=== PATIENT | male | born 1950 | race Caucasian/White ===

== ENCOUNTER 2017-05-29 06:26 | Emergency (ER) | payer MEDICARE, OTHER ==
[2017-05-29 07:10] LABS: Basophils # (A) 0.1 k/uL (0-0.2); Basophils % (A) 1 %; CH 30.8; CHCM 35.1; Eosinophils % (A) 0 %; HCT 43.6 % (39.0-53.0); HDW 2.66; HGB 14.7 gm/dL (13.0-17.5); Luc # (Auto) 0.16; Luc % (Auto) 2; Lymphocytes # (A) 1.2 k/uL (1.0-4.8); Lymphocytes % (A) 13 %; MCH 29.7 pg (25.0-35.0); MCHC 33.7 g/dL (31.0-37.0); MCV 88.3 fL (80.0-100.0); Mean Platelet Volume 8.7; Monocytes # (A) 0.4 k/uL (0-1.0); Monocytes % (A) 4 %; Neutrophils # (A) 7.7 k/uL (1.3-7.7); Neutrophils % (A) 81 %; RBC 4.94 m/uL (4.30-5.90); RDW 14.4 % (11.5-15.5); WBC 9.6 k/uL (3.8-10.6); WBC (Perox) 10.06
--- NOTE | 2017-05-29 07:10 | ED ---
Neuro HPI - General Chief Complaint: Neuro Symptoms/Deficit Stated Complaint: Neuro Deficit. Time Seen by Provider: 05/29/17 06:32 Source: EMS Mode of arrival: EMS Limitations: altered mental status - History of Present Illness Is the patient presenting with stroke symptoms?: Yes Onset/Timin -: hour(s) Initial Comments: This patient is an 67-year-old male who is brought by ambulance to be evaluated for possible stroke. The history is from the patient's as the patient himself appears to have significant aphasia. The patient's heard him up shaving, and then the patient was taking shower. She states that she heard him fall after that. It appeared that he had fallen attempting to put his boxer shorts on. When she went to check the patient he was not able to speak to her, and he was having left-sided facial and body weakness. She phoned EMS and he was brought here. The patient is not able to add any history. He is not able to respond to questions at all. Location: speech, left face, left arm, left leg History of same: No Place: home Severity: severe Quality: weak Improves With: none Worsens With: none On Anticoagulants: No Context: sudden onset Treatments Prior to Arrival: none - Related Data Home Medications: Previous Rx's Medication Instructions Recorded Aspirin 325 mg PO DAILY tab 12/29/15 Atorvastatin [Lipitor] 40 mg PO HS #30 tab 12/29/15 Carvedilol [Coreg] 6.25 mg PO BID-W/MEALS #60 tab 12/29/15 Furosemide [Lasix] 40 mg PO DAILY #30 tab 12/29/15 Lisinopril [Zestril] 10 mg PO DAILY #30 tab 12/29/15 Spironolactone [Aldactone] 25 mg PO BID@0900,1600 #60 tab 12/29/15 metFORMIN HCL [Glucophage] 500 mg PO BID-W/MEALS #60 tab 12/29/15 Allergies/Adverse Reactions: Allergies Allergy/AdvReac Type Severity Reaction Status Date / Time No Known Allergies Allergy Verified 05/29/17 07:52 Review of Systems ROS Statement: Those systems with pertinent positive or pertinent negative responses have been documented in the HPI. ROS Other: All systems not noted in ROS Statement are negative. Limitations: ROS unobtainable due to patients medical condition Constitutional: Reports: as per HPI, weakness General Exam Limitations: altered mental status General appearance: alert Head exam: Present: atraumatic, normocephalic Eye exam: Present: normal appearance, PERRL, EOMI. Absent: scleral icterus, conjunctival injection ENT exam: Present: normal oropharynx, other (There is left facial droop) Neck exam: Present: normal inspection, full ROM. Absent: tenderness Respiratory exam: Present: normal lung sounds bilaterally. Absent: respiratory distress, wheezes, rales, rhonchi, stridor, chest wall tenderness Cardiovascular Exam: Present: normal rhythm, tachycardia (Rate approximately 120 at my exam), normal heart sounds. Absent: systolic murmur, diastolic murmur , rubs, gallop GI/Abdominal exam: Present: soft. Absent: distended, tenderness, guarding, rebound, mass Extremities exam: Present: normal inspection, normal capillary refill. Absent: pedal edema, calf tenderness Back exam: Present: vertebral tenderness. Absent: CVA tenderness (R), CVA tenderness (L) Neurological exam: Present: alert, altered, motor sensory deficit, other (See attached stroke scale). Absent: CN II-XII intact Skin exam: Present: warm, dry, intact, normal color. Absent: rash Stroke MDM - Lab Data Result diagrams: 05/29/17 06:50 05/29/17 06:50 Lab Results 05/29/17 05/29/17 05/29/17 Range/Units 06:50 06:50 06:50 WBC 9.6 (3.8-10.6) k/uL RBC 4.94 (4.30-5.90) m/uL Hgb 14.7 (13.0-17.5) gm/dL Hct 43.6 (39.0-53.0) % MCV 88.3 (80.0-100.0) fL MCH 29.7 (25.0-35.0) pg MCHC 33.7 (31.0-37.0) g/dL RDW 14.4 (11.5-15.5) % Plt Count 395 (150-450) k/uL Neutrophils % 81 % Lymphocytes % 13 % Monocytes % 4 % Eosinophils % 0 % Basophils % 1 % Neutrophils # 7.7 (1.3-7.7) k/uL Lymphocytes # 1.2 (1.0-4.8) k/uL Monocytes # 0.4 (0-1.0) k/uL Eosinophils # 0.0 (0-0.7) k/uL Basophils # 0.1 (0-0.2) k/uL PT (9.0-12.0) sec INR (<1.2) APTT (22.0-30.0) sec Sodium 139 (137-145) mmol/L Potassium 4.4 (3.5-5.1) mmol/L Chloride 101 (98-107) mmol/L Carbon Dioxide 22 (22-30) mmol/L Anion Gap 16 mmol/L BUN 19 (9-20) mg/dL Creatinine 0.67 (0.66-1.25) mg/dL Est GFR (MDRD) Af Amer >60 (>60 ml/min/1.73 sqM) Est GFR (MDRD) Non-Af >60 (>60 ml/min/1.73 sqM) Glucose 303 H (74-99) mg/dL Calcium 8.9 (8.4-10.2) mg/dL Total Bilirubin 0.9 (0.2-1.3) mg/dL AST 61 H (17-59) U/L ALT 49 (21-72) U/L Alkaline Phosphatase 73 (38-126) U/L Total Creatine Kinase 382 H (55-170) U/L CK-MB (CK-2) 29.9 H* (0.0-2.4) ng/mL CK-MB (CK-2) Rel Index 7.8 Troponin I 2.120 H* (0.000-0.034) ng/mL Total Protein 6.5 (6.3-8.2) g/dL Albumin 4.0 (3.5-5.0) g/dL 05/29/17 Range/Units 06:50 WBC (3.8-10.6) k/uL RBC (4.30-5.90) m/uL Hgb (13.0-17.5) gm/dL Hct (39.0-53.0) % MCV (80.0-100.0) fL MCH (25.0-35.0) pg MCHC (31.0-37.0) g/dL RDW (11.5-15.5) % Plt Count (150-450) k/uL Neutrophils % % Lymphocytes % % Monocytes % % Eosinophils % % Basophils % % Neutrophils # (1.3-7.7) k/uL Lymphocytes # (1.0-4.8) k/uL Monocytes # (0-1.0) k/uL Eosinophils # (0-0.7) k/uL Basophils # (0-0.2) k/uL PT 10.6 (9.0-12.0) sec INR 1.1 (<1.2) APTT 19.1 L (22.0-30.0) sec Sodium (137-145) mmol/L Potassium (3.5-5.1) mmol/L Chloride (98-107) mmol/L Carbon Dioxide (22-30) mmol/L Anion Gap mmol/L BUN (9-20) mg/dL Creatinine (0.66-1.25) mg/dL Est GFR (MDRD) Af Amer (>60 ml/min/1.73 sqM) Est GFR (MDRD) Non-Af (>60 ml/min/1.73 sqM) Glucose (74-99) mg/dL Calcium (8.4-10.2) mg/dL Total Bilirubin (0.2-1.3) mg/dL AST (17-59) U/L ALT (21-72) U/L Alkaline Phosphatase (38-126) U/L Total Creatine Kinase (55-170) U/L CK-MB (CK-2) (0.0-2.4) ng/mL CK-MB (CK-2) Rel Index Troponin I (0.000-0.034) ng/mL Total Protein (6.3-8.2) g/dL Albumin (3.5-5.0) g/dL - Medical Decision Making Patient is 67-year-old man with acute ischemic stroke. The stroke team is activated and the patient transferred to [facility]. - EKG Data -: EKG Interpreted by Me EKG shows normal: sinus rhythm, intervals (AZ interval is 216 ms, prolonged consistent with first-degree AV block. QRS duration is 142 ms, consistent with left bundle branch block. QTC is 436 ms, normal), QRS complexes (There is a left bundle-branch block.) Rate: tachycardia (Rate approximate 120 7H per minute) When compared to previous EKG there are: other (In comparison with the previous EKG from 12/27/2015, the left bundle branch block is new.) Past Medical History Past Medical History: Hypertension Additional Past Medical History / Comment(s): pt has abdominal herni,a CHF History of Any Multi-Drug Resistant Organisms: None Reported Past Surgical History: No Surgical Hx Reported Past Anesthesia/Blood Transfusion Reactions: No Reported Reaction Past Psychological History: No Psychological Hx Reported Smoking Status: Former smoker Past Alcohol Use History: None Reported Past Drug Use History: None Reported - Past Family History Mother Family Medical History: Myocardial Infarction ([place]) Father Family Medical History: [place]ocardial Infarction ([place]) Course Vital Signs 05/29/17 05/29/17 05/29/17 06:26 06:35 06:48 Temperature Pulse Rate 121 H 124 H 121 H Respiratory 24 24 24 Rate Blood Pressure 140/90 151/92 140/90 O2 Sat by Pulse 94 L 95 94 L Oximetry 05/29/17 05/29/17 05/29/17 06:50 07:15 07:26 Temperature Pulse Rate 123 H 126 H 126 H Respiratory 24 24 20 Rate Blood Pressure 151/97 146/107 130/95 O2 Sat by Pulse 90 L 93 L 93 L Oximetry 05/29/17 05/29/17 05/29/17 07:45 07:57 07:59 Temperature 99.1 F Pulse Rate 128 H 127 H Respiratory 20 20 Rate Blood Pressure 133/96 138/98 O2 Sat by Pulse 96 98 Oximetry - Reevaluation(s) Reevaluation #1: 05/29/17 07:10 I did receive a call from the radiologist with interpretation of what appears to be acute ischemic stroke involving the left middle cerebral artery, M2 segment. The patient is currently having evaluation, using telemetry, by the stroke team. Critical Care Time Critical Care Time: Yes (35 minutes) Disposition Clinical Impression: Acute ischemic stroke Disposition: OTHER INSTITUTION NOT DEFINED Condition: Critical Referrals: Sondra Perdomo III, MD [Primary Care Provider] - 1-2 days - Out of Hospital Transfer - Req. Specs Out of Hospital Transfer - Requested Specifics: Neurological ICU
[2017-05-29 07:14] LABS: ALT 49 U/L (21-72); AST 61 U/L (17-59); Alkaline Phosphatase 73 U/L (38-126); Anion Gap 16 mmol/L; Blood Urea Nitrogen 19 mg/dL (9-20); Calcium 8.9 mg/dL (8.4-10.2); Carbon Dioxide 22 mmol/L (22-30); Chloride 101 mmol/L (98-107); Glucose 303 mg/dL (74-99); Non-African American GFR(MDRD) >60 (>60 ml/min/1.73 sqM); Potassium 4.4 mmol/L (3.5-5.1); Sodium 139 mmol/L (137-145); Total Bilirubin 0.9 mg/dL (0.2-1.3); Total Protein 6.5 g/dL (6.3-8.2)
[2017-05-29 07:29] VITALS: RESP 20
[2017-05-29 07:39] LABS: INR 1.1 (<1.2); Prothrombin Time 10.6 sec (9.0-12.0)
[2017-05-29 07:40] LABS: Creatine Kinase MB 29.9 ng/mL (0.0-2.4); Troponin I 2.12 ng/mL (0.000-0.034)
[2017-05-29] MEDS ORDERED: SODIUM CHLORIDE 0.9% 1,000 ML IV ONE (07:52)
[2017-05-29 07:53] LABS: Partial Thromboplastin Time 19.1 sec (22.0-30.0)
[2017-05-29 07:58] VITALS: BP 138/98; PULSE 127
[2017-05-29 08:00] VITALS: TEMP 99.1
--- NOTE | 2017-05-30 09:21 | CT ---
ADDENDUM - Added by Juan Jose Butler M.D. on 05/29/2017 6:56 AM (-07:00) Questionable curvilinear hyperdensity within an M2 segment of the left middle cerebral artery, raising concern for thrombus. EXAM: CT Head Without Intravenous Contrast. CLINICAL HISTORY: Reason: Neuro Deficits TECHNIQUE: Axial computed tomography images of the head/brain without intravenous contrast. CTDI is 57.4 mGy and DLP is 995.5 mGy-cm. This CT exam was performed using one or more of the following dose reduction techniques: automated exposure control, adjustment of the mA and/or kV according to patient size, and/or use of iterative reconstruction technique. COMPARISON: No relevant prior studies available. FINDINGS: Brain: Loss of sosa-white matter differentiation within the left frontal lobe and insular cortex consistent with acute infarct, within the distribution of the left middle cerebral artery. No acute intracranial hemorrhage. Ventricles: Unremarkable. No ventriculomegaly. Bones: No acute fracture. Sinuses: Unremarkable as visualized. No acute sinusitis. Mastoid air cells: Unremarkable as visualized. No mastoid effusion. IMPRESSION: Acute territorial infarct within the left frontal lobe and insular cortex, within the distribution of the left middle cerebral artery. Recommend further evaluation with brain MRI. Dictated By: Juan Jose Butler MD 05/29/17 0657 Signed By: LISA 05/29/17 0657 Exam Start: Exam Stop: MTDD
--- NOTE | 2017-05-30 09:22 | CT ---
EXAM: CT Head With Intravenous Contrast. CLINICAL HISTORY: Reason: Neuro Deficits TECHNIQUE: Axial computed tomography images of the head with intravenous contrast during the arterial phase of enhancement. CTDI is 112.6 mGy and DLP is 305.3 mGy-cm. This CT exam was performed using one or more of the following dose reduction techniques: automated exposure control, adjustment of the mA and/or kV according to patient size, and/or use of iterative reconstruction technique. COMPARISON: No relevant prior studies available. FINDINGS: Internal carotid arteries: Intracranial ICA are patent with no significant stenosis. No occlusion. No aneurysm. Anterior cerebral arteries: No significant stenosis. No occlusion. No aneurysm. Middle cerebral arteries: No significant stenosis. No occlusion. No aneurysm. There is hypoattenuation of brain parenchyma within the distribution of the left middle cerebral artery, consistent with acute/subacute infarct, possibly due to occlusion of distal M2 or M3 branch. Posterior cerebral arteries: Unremarkable. No significant stenosis. No occlusion. No aneurysm. Basilar artery: Unremarkable. No significant stenosis. No occlusion. No aneurysm. Vertebral arteries: Unremarkable as visualized. IMPRESSION: No large vessel occlusion is identified. Presence of acute/subacute infarct within the left frontal and insular cortex suggests occlusive thrombus within a distal M2 or M3 branch, though no definite occlusion is identified. EXAM: CT Angiography Neck With Intravenous Contrast. CLINICAL HISTORY: Reason: Neuro Deficits TECHNIQUE: Axial computed tomographic angiography images of the neck with intravenous contrast using CT angiography protocol. CTDI is 112.6 mGy and DLP is 305.3 mGy-cm. This CT exam was performed using one or more of the following dose reduction techniques: automated exposure control, adjustment of the mA and/or kV according to patient size, and/or use of iterative reconstruction technique. MIP reconstructed images were created and reviewed. COMPARISON: No relevant prior studies available. FINDINGS: Internal carotid arteries: Unremarkable. Extracranial ICA are patent with no significant stenosis. No dissection or occlusion. Common carotid arteries: Unremarkable. No significant stenosis. No dissection or occlusion. External carotid arteries: Unremarkable. No occlusion. Vertebral arteries: Unremarkable. No significant stenosis. No dissection or occlusion. Soft tissues: Unremarkable as visualized. No mass. Limited evaluation of the lung apices shows several scattered groundglass nodules in the right upper lobe, likely postinflammatory or due to aspiration. Bones: No acute fracture. IMPRESSION: Normal carotid and vertebral arteries. No significant stenosis by NASCET criteria. MTDD
--- NOTE | 2017-05-30 09:24 | XR ---
EXAM: XR Chest, 1 View. CLINICAL HISTORY: Reason: altered mental status TECHNIQUE: Frontal view of the chest. COMPARISON: No relevant prior studies available. FINDINGS: Lungs: Lungs are hypoinflated. No evidence of airspace consolidation. Prominent perihilar vascular and interstitial markings likely due to pulmonary vascular congestion. Pleural spaces: No pneumothorax. No significant pleural effusion. Heart: No cardiomegaly. Mediastinum: Unremarkable. Bones: Unremarkable. No acute fracture. IMPRESSION: No airspace consolidation, pneumothorax or pleural effusion. Pulmonary vascular congestion. MTDD
--- NOTE | 2017-05-31 02:15 | CDI ---
Documentation Clarification OP Dear Huey Romero Please do addendum to ED report for missing Clinical Impression. Thank you, Stacy Hernandes [employer] If you have any questions, please contact [employer] at [phone] [facility]
== END 2017-05-29 08:11 | disposition other institution (70) ==
LOC: EC 06:26
DX: I63.9 Cerebral infarction, unspecified (principal); Z87.891 Personal history of nicotine dependence
CPT/HCPCS: 36415; 93005; 80053; 82550; 82553; 84484; 85025; 85610; 85730; 71010; 70496; 70450; 70498; 99291; Q9967

== ENCOUNTER 2017-07-23 00:25 | Inpatient (IN) | payer MEDICARE, OTHER ==
[2017-07-23] MEDS ORDERED: SODIUM CHLORIDE 0.9% 1,000 ML IV STA (00:42)
[2017-07-23] MEDS ORDERED: FAMOTIDINE 20 MG/2 ML VIAL IV STA (00:43)
[2017-07-23 00:47] VITALS: TEMP 97.1
[2017-07-23] MEDS ORDERED: PROPOFOL 1,000 MG/100 ML VIAL IV ONE ×2 (00:51→05:43)
--- NOTE | 2017-07-23 00:57 | ED ---
General Adult HPI - General Source: patient, family, RN notes reviewed Mode of arrival: wheelchair <Vitor Torres - Last Filed: 07/23/17 01:13> <Leo Mitchell - Last Filed: 07/23/17 03:59> - General Chief complaint: Cardiac Arrest/CPR Stated complaint: Vomiting Blood Time Seen by Provider: 07/23/17 00:25 - History of Present Illness Initial comments: this is a 67-year-old male with a history of a recent stroke in May of this year with some slight right-sided residual weakness also history of hypertension CT atrial fibrillation who is on Xarelto who apparently about 1 hour prior to arrival started developing shortness of breath. He was brought here by private vehicle upon arrival he also started vomiting of blood. He was brought immediately back to room 20 he was found to be at neck pulseless very pale with some frothy pink phlegm and some evidence of hematemesis. CPR was was immediately started. The patient was intubated by me. After a short round of recessive efforts patient's pulse did return. (BrianVitor) - Related Data Previous Rx's Medication Instructions Recorded Aspirin 325 mg PO DAILY tab 12/29/15 Atorvastatin [Lipitor] 40 mg PO HS #30 tab 12/29/15 Carvedilol [Coreg] 6.25 mg PO BID-W/MEALS #60 tab 12/29/15 Furosemide [Lasix] 40 mg PO DAILY #30 tab 12/29/15 Lisinopril [Zestril] 10 mg PO DAILY #30 tab 12/29/15 Spironolactone [Aldactone] 25 mg PO BID@0900,1600 #60 tab 12/29/15 metFORMIN HCL [Glucophage] 500 mg PO BID-W/MEALS #60 tab 12/29/15 Allergies Allergy/AdvReac Type Severity Reaction Status Date / Time No Known Allergies Allergy Verified 07/23/17 00:47 Review of Systems ROS Other: All systems not noted in ROS Statement are negative. Limitations: ROS unobtainable due to patients medical condition <Vitor Torres - Last Filed: 07/23/17 01:13> ROS Other: All systems not noted in ROS Statement are negative. <Leo Mitchell - Last Filed: 07/23/17 03:59> ROS Statement: Those systems with pertinent positive or pertinent negative responses have been documented in the HPI. Past Medical History Past Medical History: CVA/TIA, Hypertension, Myocardial Infarction (CT) Additional Past Medical History / Comment(s): pt has abdominal herni,a CHF History of Any Multi-Drug Resistant Organisms: None Reported Past Surgical History: No Surgical Hx Reported Past Anesthesia/Blood Transfusion Reactions: No Reported Reaction Past Psychological History: No Psychological Hx Reported Smoking Status: Former smoker Past Alcohol Use History: None Reported Past Drug Use History: None Reported - Past Family History Mother Family Medical History: Myocardial Infarction (CT) Father Family Medical History: Myocardial Infarction (CT) <BrianVitor - Last Filed: 07/23/17 01:13> General Exam Limitations: altered mental status, physical limitation General appearance: other (unresponsive) Head exam: Present: atraumatic Eye exam: Present: other (pupils initially were fixed and mid point) ENT exam: Present: other (frothy red material in the oral pharynx.) Neck exam: Present: normal inspection, other (stridor JVD or bruits). Absent: lymphadenopathy Respiratory exam: Present: other (no breath sounds) Cardiovascular Exam: Present: other (initially pulseless) GI/Abdominal exam: Present: distended, other (umbilical hernia noted) exam: Present: normal inspection Extremities exam: Present: other (pale). Absent: normal capillary refill Back exam: Present: normal inspection Neurological exam: Present: other (unresponsive) Psychiatric exam: Present: other (unable to evaluate) Skin exam: Present: pallor <BrianVitor - Last Filed: 07/23/17 01:13> <Leo Mitchell - Last Filed: 07/23/17 03:59> - General Exam Comments Initial Comments: is a well-developed well-nourished unresponsive pale appearing male. No respiratory effort unresponsive and pulseless initially. (Vitor Torres) Course <Vitor Torres - Last Filed: 07/23/17 01:13> <Leo Mitchell - Last Filed: 07/23/17 03:59> Vital Signs 07/23/17 00:26 Temperature 97.1 F L Pulse Rate 46 L Respiratory 16 Rate Blood Pressure 182/84 - Reevaluation(s) Reevaluation #1: 07/23/17 00:59 x-ray reveals evidence of increased pulmonary vascular congestion the official reading is pending ET tube appears to be above the jesús. (Vitor Torres) Reevaluation #2: 07/23/17 01:01 the patient's care will be endorsed to Dr. Mitchell who will make the final disposition. (Vitor Torres) EKG Findings - EKG Results: EKG: interpreted by ERMD (evidence of atrial fibrillation with a ventricular rate of 44 QRS 152 QT since QTC of 40/410 that bundle-branch block pattern) <BrianVitor - Last Filed: 07/23/17 01:13> Procedures - Intubation Time Out Performed: No (constantly a bedside initially no sedatives or paralytics needed) Laryngoscope: Renteria Size: 3 ET Tube Size: 8 ET Tube Uncuffed: No (cuff the tube) Tube Secured Depth (cm): 23 Tube Secured Location: lips Tube Placement Confirmation: visualized tube passing through cords, equal breath sounds bilaterally Patient Tolerated Procedure: well, no complications Intubation Complications: none <BrianVitor - Last Filed: 07/23/17 01:13> - Central Line Placement Right Femoral Consent Obtained: verbal consent Time Out Performed: Yes Patient Placed on Monitor/Pulse Ox: Yes MD Prep: mask, gown, gloves Central Line Prep: Chlorhexidine scrub Local Anesthesia Used: Lidocaine 1% Ultrasound Used for Placement: No Central Line Lumen Inserted: triple Central Line Position: good blood return, all ports aspirated, flushed, capped, sutured in place with 3-0 nylon Dressing Applied: Tegaderm Patient Tolerated Procedure: well Complications: none <Leo Mitchell - Last Filed: 07/23/17 03:59> Medical Decision Making <BrianVitor - Last Filed: 07/23/17 01:13> - Lab Data Result diagrams: 07/23/17 01:10 07/23/17 01:10 <Leo Mitchell - Last Filed: 07/23/17 03:59> - Medical Decision Making I spoke with Dr. Grady from cardiology on 3 different occasions I gave him all the updates of the various medications that I had going as well as what he wanted and he made the decision that the patient did not need a pacemaker at this time. EKG shows third-degree block at 25 bpm. QRS is 178 QT interval 688 QTC is 443. I have the patient on dopamine, propofol, patient is also received Ativan. I gave the patient Levaquin in case of infection because he has a 10.8 lactic acid. Patient also received potassium. Spoke with Dr. Castrejon and admitted the patient to the ICU. (Leo Mitchell) - Lab Data Lab Results 07/23/17 07/23/17 07/23/17 Range/Units 01:10 01:10 01:10 WBC 18.4 H (3.8-10.6) k/uL RBC 5.02 (4.30-5.90) m/uL Hgb 14.4 (13.0-17.5) gm/dL Hct 49.3 (39.0-53.0) % MCV 98.3 D (80.0-100.0) fL MCH 28.7 (25.0-35.0) pg MCHC 29.2 L (31.0-37.0) g/dL RDW 15.5 (11.5-15.5) % Plt Count 214 (150-450) k/uL Neutrophils % (Manual) 52 % Band Neutrophils % 3 % Lymphocytes % (Manual) 35 % Monocytes % (Manual) 9 % Eosinophils % (Manual) 2 % Metamyelocytes % 1 % Neutrophils # (Manual) 10.10 H (1.3-7.7) k/uL Lymphocytes # (Manual) 6.44 H (1.0-4.8) k/uL Monocytes # (Manual) 1.66 H (0-1.0) k/uL Eosinophils # (Manual) 0.37 (0-0.7) k/uL Metamyelocytes # (Man) 0.18 H (0) k/uL Nucleated RBCs 0 (0-0) /100 WBC Polychromasia Present Hypochromasia Marked Poikilocytosis (manual Present Anisocytosis (manual) Present Macrocytosis Slight PT 16.7 H (9.0-12.0) sec INR 1.7 H (<1.2) APTT 25.2 (22.0-30.0) sec Sample Site ABG pH (7.35-7.45) ABG pCO2 (35-45) mmHg ABG pO2 (83-108) mmHg ABG HCO3 (21-25) mmol/L ABG Total CO2 (19-24) mmol/L ABG O2 Saturation (94-97) % ABG Base Excess mmol/L FiO2 % Sodium (137-145) mmol/L Potassium (3.5-5.1) mmol/L Chloride (98-107) mmol/L Carbon Dioxide (22-30) mmol/L Anion Gap mmol/L BUN (9-20) mg/dL Creatinine (0.66-1.25) mg/dL Est GFR (MDRD) Af Amer (>60 ml/min/1.73 sqM) Est GFR (MDRD) Non-Af (>60 ml/min/1.73 sqM) Glucose (74-99) mg/dL POC Glucose (mg/dL) (75-99) mg/dL POC Glu [employer] ID Plasma Lactic Acid Luis Alfredo (0.7-2.0) mmol/L Calcium (8.4-10.2) mg/dL Magnesium (1.6-2.3) mg/dL Total Bilirubin (0.2-1.3) mg/dL AST (17-59) U/L ALT (21-72) U/L Alkaline Phosphatase (38-126) U/L Total Creatine Kinase (55-170) U/L CK-MB (CK-2) (0.0-2.4) ng/mL CK-MB (CK-2) Rel Index Troponin I (0.000-0.034) ng/mL NT-Pro-B Natriuret Pep pg/mL Total Protein (6.3-8.2) g/dL Albumin (3.5-5.0) g/dL Urine Color Urine Appearance (Clear) Urine pH (5.0-8.0) Ur Specific [employer] (1.001-1.035) Urine Protein (Negative) Urine Glucose (UA) (Negative) Urine Ketones (Negative) Urine Blood (Negative) Urine Nitrite (Negative) Urine Bilirubin (Negative) Urine Urobilinogen (<2.0) mg/dL Ur Leukocyte Esterase (Negative) Urine RBC (0-5) /hpf Urine WBC (0-5) /hpf Ur Squamous Epith Cells (0-4) /hpf Amorphous Sediment (None) /hpf Urine Bacteria (None) /hpf Hyaline Casts (0-2) /lpf Urine Mucus (None) /hpf Urine Sperm (None) /hpf Blood Type A Positive Blood Type Recheck CABO Indicated Antibody Screen NEGATIVE Spec Expiration Date 07/26/2017230907/23/17 07/23/17 07/23/17 Range/Units 01:10 01:10 01:10 WBC (3.8-10.6) k/uL RBC (4.30-5.90) m/uL Hgb (13.0-17.5) gm/dL Hct (39.0-53.0) % MCV (80.0-100.0) fL MCH (25.0-35.0) pg MCHC (31.0-37.0) g/dL RDW (11.5-15.5) % Plt Count (150-450) k/uL Neutrophils % (Manual) % Band Neutrophils % % Lymphocytes % (Manual) % Monocytes % (Manual) % Eosinophils % (Manual) % Metamyelocytes % % Neutrophils # (Manual) (1.3-7.7) k/uL Lymphocytes # (Manual) (1.0-4.8) k/uL Monocytes # (Manual) (0-1.0) k/uL Eosinophils # (Manual) (0-0.7) k/uL Metamyelocytes # (Man) (0) k/uL Nucleated RBCs (0-0) /100 WBC Polychromasia Hypochromasia Poikilocytosis (manual Anisocytosis (manual) Macrocytosis PT (9.0-12.0) sec INR (<1.2) APTT (22.0-30.0) sec Sample Site ABG pH (7.35-7.45) ABG pCO2 (35-45) mmHg ABG pO2 (83-108) mmHg ABG HCO3 (21-25) mmol/L ABG Total CO2 (19-24) mmol/L ABG O2 Saturation (94-97) % ABG Base Excess mmol/L FiO2 % Sodium 142 (137-145) mmol/L Potassium 2.6 L* (3.5-5.1) mmol/L Chloride 102 (98-107) mmol/L Carbon Dioxide 22 (22-30) mmol/L Anion Gap 18 mmol/L BUN 14 (9-20) mg/dL Creatinine 0.90 (0.66-1.25) mg/dL Est GFR (MDRD) Af Amer >60 (>60 ml/min/1.73 sqM) Est GFR (MDRD) Non-Af >60 (>60 ml/min/1.73 sqM) Glucose 285 H (74-99) mg/dL POC Glucose (mg/dL) (75-99) mg/dL POC Glu [employer] ID Plasma Lactic Acid Luis Alfredo (0.7-2.0) mmol/L Calcium 9.0 (8.4-10.2) mg/dL Magnesium 1.9 (1.6-2.3) mg/dL Total Bilirubin 0.5 (0.2-1.3) mg/dL AST 154 H (17-59) U/L ALT 136 H (21-72) U/L Alkaline Phosphatase 85 (38-126) U/L Total Creatine Kinase 114 (55-170) U/L CK-MB (CK-2) 0.9 (0.0-2.4) ng/mL CK-MB (CK-2) Rel Index 0.8 Troponin I 0.065 H* (0.000-0.034) ng/mL NT-Pro-B Natriuret Pep 8080 pg/mL Total Protein 5.9 L (6.3-8.2) g/dL Albumin 3.7 (3.5-5.0) g/dL Urine Color Urine Appearance (Clear) Urine pH (5.0-8.0) Ur Specific [employer] (1.001-1.035) Urine Protein (Negative) Urine Glucose (UA) (Negative) Urine Ketones (Negative) Urine Blood (Negative) Urine Nitrite (Negative) Urine Bilirubin (Negative) Urine Urobilinogen (<2.0) mg/dL Ur Leukocyte Esterase (Negative) Urine RBC (0-5) /hpf Urine WBC (0-5) /hpf Ur Squamous Epith Cells (0-4) /hpf Amorphous Sediment (None) /hpf Urine Bacteria (None) /hpf Hyaline Casts (0-2) /lpf Urine Mucus (None) /hpf Urine Sperm (None) /hpf Blood Type Blood Type Recheck Antibody Screen Spec Expiration Date 07/23/17 07/23/17 07/23/17 Range/Units 01:10 01:15 01:50 WBC (3.8-10.6) k/uL RBC (4.30-5.90) m/uL Hgb (13.0-17.5) gm/dL Hct (39.0-53.0) % MCV (80.0-100.0) fL MCH (25.0-35.0) pg MCHC (31.0-37.0) g/dL RDW (11.5-15.5) % Plt Count (150-450) k/uL Neutrophils % (Manual) % Band Neutrophils % % Lymphocytes % (Manual) % Monocytes % (Manual) % Eosinophils % (Manual) % Metamyelocytes % % Neutrophils # (Manual) (1.3-7.7) k/uL Lymphocytes # (Manual) (1.0-4.8) k/uL Monocytes # (Manual) (0-1.0) k/uL Eosinophils # (Manual) (0-0.7) k/uL Metamyelocytes # (Man) (0) k/uL Nucleated RBCs (0-0) /100 WBC Polychromasia Hypochromasia Poikilocytosis (manual Anisocytosis (manual) Macrocytosis PT (9.0-12.0) sec INR (<1.2) APTT (22.0-30.0) sec Sample Site RIGHT BRACHIAL ABG pH 7.15 L* (7.35-7.45) ABG pCO2 53 H (35-45) mmHg ABG pO2 90 (83-108) mmHg ABG HCO3 18 L (21-25) mmol/L ABG Total CO2 19 (19-24) mmol/L ABG O2 Saturation 94.0 (94-97) % ABG Base Excess -9.7 mmol/L FiO2 100 % Sodium (137-145) mmol/L Potassium (3.5-5.1) mmol/L Chloride (98-107) mmol/L Carbon Dioxide (22-30) mmol/L Anion Gap mmol/L BUN (9-20) mg/dL Creatinine (0.66-1.25) mg/dL Est GFR (MDRD) Af Amer (>60 ml/min/1.73 sqM) Est GFR (MDRD) Non-Af (>60 ml/min/1.73 sqM) Glucose (74-99) mg/dL POC Glucose (mg/dL) 251 H (75-99) mg/dL POC Glu [employer] ID Gabriel, Jimmy Plasma Lactic Acid Luis Alfredo 10.8 H* (0.7-2.0) mmol/L Calcium (8.4-10.2) mg/dL Magnesium (1.6-2.3) mg/dL Total Bilirubin (0.2-1.3) mg/dL AST (17-59) U/L ALT (21-72) U/L Alkaline Phosphatase (38-126) U/L Total Creatine Kinase (55-170) U/L CK-MB (CK-2) (0.0-2.4) ng/mL CK-MB (CK-2) Rel Index Troponin I (0.000-0.034) ng/mL NT-Pro-B Natriuret Pep pg/mL Total Protein (6.3-8.2) g/dL Albumin (3.5-5.0) g/dL Urine Color Urine Appearance (Clear) Urine pH (5.0-8.0) Ur Specific [employer] (1.001-1.035) Urine Protein (Negative) Urine Glucose (UA) (Negative) Urine Ketones (Negative) Urine Blood (Negative) Urine Nitrite (Negative) Urine Bilirubin (Negative) Urine Urobilinogen (<2.0) mg/dL Ur Leukocyte Esterase (Negative) Urine RBC (0-5) /hpf Urine WBC (0-5) /hpf Ur Squamous Epith Cells (0-4) /hpf Amorphous Sediment (None) /hpf Urine Bacteria (None) /hpf Hyaline Casts (0-2) /lpf Urine Mucus (None) /hpf Urine Sperm (None) /hpf Blood Type Blood Type Recheck Antibody Screen Spec Expiration Date 07/23/17 Range/Units 02:14 WBC (3.8-10.6) k/uL RBC (4.30-5.90) m/uL Hgb (13.0-17.5) gm/dL Hct (39.0-53.0) % MCV (80.0-100.0) fL MCH (25.0-35.0) pg MCHC (31.0-37.0) g/dL RDW (11.5-15.5) % Plt Count (150-450) k/uL Neutrophils % (Manual) % Band Neutrophils % % Lymphocytes % (Manual) % Monocytes % (Manual) % Eosinophils % (Manual) % Metamyelocytes % % Neutrophils # (Manual) (1.3-7.7) k/uL Lymphocytes # (Manual) (1.0-4.8) k/uL Monocytes # (Manual) (0-1.0) k/uL Eosinophils # (Manual) (0-0.7) k/uL Metamyelocytes # (Man) (0) k/uL Nucleated RBCs (0-0) /100 WBC Polychromasia Hypochromasia Poikilocytosis (manual Anisocytosis (manual) Macrocytosis PT (9.0-12.0) sec INR (<1.2) APTT (22.0-30.0) sec Sample Site ABG pH (7.35-7.45) ABG pCO2 (35-45) mmHg ABG pO2 (83-108) mmHg ABG HCO3 (21-25) mmol/L ABG Total CO2 (19-24) mmol/L ABG O2 Saturation (94-97) % ABG Base Excess mmol/L FiO2 % Sodium (137-145) mmol/L Potassium (3.5-5.1) mmol/L Chloride (98-107) mmol/L Carbon Dioxide (22-30) mmol/L Anion Gap mmol/L BUN (9-20) mg/dL Creatinine (0.66-1.25) mg/dL Est GFR (MDRD) Af Amer (>60 ml/min/1.73 sqM) Est GFR (MDRD) Non-Af (>60 ml/min/1.73 sqM) Glucose (74-99) mg/dL POC Glucose (mg/dL) (75-99) mg/dL POC Glu [employer] ID Plasma Lactic Acid Luis Alfredo (0.7-2.0) mmol/L Calcium (8.4-10.2) mg/dL Magnesium (1.6-2.3) mg/dL Total Bilirubin (0.2-1.3) mg/dL AST (17-59) U/L ALT (21-72) U/L Alkaline Phosphatase (38-126) U/L Total Creatine Kinase (55-170) U/L CK-MB (CK-2) (0.0-2.4) ng/mL CK-MB (CK-2) Rel Index Troponin I (0.000-0.034) ng/mL NT-Pro-B Natriuret Pep pg/mL Total Protein (6.3-8.2) g/dL Albumin (3.5-5.0) g/dL Urine Color Yellow Urine Appearance Turbid (Clear) Urine pH 6.0 (5.0-8.0) Ur Specific [employer] 1.021 (1.001-1.035) Urine Protein 2+ H (Negative) Urine Glucose (UA) Trace H (Negative) Urine Ketones Negative (Negative) Urine Blood Moderate H (Negative) Urine Nitrite Negative (Negative) Urine Bilirubin Negative (Negative) Urine Urobilinogen <2.0 (<2.0) mg/dL Ur Leukocyte Esterase Negative (Negative) Urine RBC 61 H (0-5) /hpf Urine WBC 9 H (0-5) /hpf Ur Squamous Epith Cells 1 (0-4) /hpf Amorphous Sediment Occasional H (None) /hpf Urine Bacteria Occasional H (None) /hpf Hyaline Casts 12 H (0-2) /lpf Urine Mucus Few H (None) /hpf Urine Sperm Moderate H (None) /hpf Blood Type Blood Type Recheck Antibody Screen Spec Expiration Date Critical Care Time Critical Care Time: Yes <Vitor Torres - Last Filed: 07/23/17 01:13> Critical Care Time: Yes Total Critical Care Time: 55 <Leo Mitchell - Last Filed: 07/23/17 03:59> Critical Care Time: Initial critical care time of 32 minutes which did not include intubation. This did include initial assessment discussed with family members initial exam history physical reassessment of the patient. (Vitro Torres) Disposition <Vitor Torres - Last Filed: 07/23/17 01:13> Time of Disposition: 03:48 <Leo Mitchell - Last Filed: 07/23/17 03:59> Clinical Impression: Bradycardia, Pulmonary edema, Cardiac arrest, Lactic acidosis, Hypokalemia Disposition: ADMITTED IP TO THIS HOSP Referrals: Sondra Perdomo III, MD [Primary Care Provider] - 1-2 days
[2017-07-23] MEDS ORDERED: FUROSEMIDE 10 MG/ML 4 ML VIAL IV STA (01:01)
--- NOTE | 2017-07-23 01:11 | XR ---
EXAMINATION TYPE: XR chest 1V portable DATE OF EXAM: 07/23/2017 COMPARISON: 05/29/2017 HISTORY: Intubation TECHNIQUE: Single frontal view of the chest is obtained. FINDINGS: There is pulmonary alveolar edema. Endotracheal tube is low and at the origin right main s tem bronchus. There are chest leads. IMPRESSION: There is severe pulmonary edema. This could relate to acute heart failure or RDS. Pulmon césar edema is worse than last exam. Endotracheal tube is low and should be pulled back 4 cm.
[2017-07-23] MEDS ORDERED: PROPOFOL 10 MG/ML 20 ML VIAL IV STA (01:12)
[2017-07-23] MEDS ORDERED: LORazepam 2 MG/ML INJ IV STA ×2 (01:20→01:48)
[2017-07-23 01:32] LABS: Partial Thromboplastin Time 25.2 sec (22.0-30.0)
[2017-07-23 01:34] LABS: CH 28.7; CHCM 29.4; HCT 49.3 % (39.0-53.0); HDW 2.59; HGB 14.4 gm/dL (13.0-17.5); Hypochromasia Marked; INR 1.7 (<1.2); MCH 28.7 pg (25.0-35.0); MCHC 29.2 g/dL (31.0-37.0); Macrocytosis Slight; Mean Platelet Volume 9.3; Prothrombin Time 16.7 sec (9.0-12.0); RBC 5.02 m/uL (4.30-5.90); RDW 15.5 % (11.5-15.5); WBC 18.4 k/uL (3.8-10.6); WBC (Perox) 18.27
[2017-07-23 01:39] LABS: ALT 136 U/L (21-72); AST 154 U/L (17-59); Alkaline Phosphatase 85 U/L (38-126); Anion Gap 18 mmol/L; Blood Urea Nitrogen 14 mg/dL (9-20); Carbon Dioxide 22 mmol/L (22-30); Chloride 102 mmol/L (98-107); Glucose 285 mg/dL (74-99); MCV 98.3 fL (80.0-100.0); Magnesium 1.9 mg/dL (1.6-2.3); Non-African American GFR(MDRD) >60 (>60 ml/min/1.73 sqM); Sodium 142 mmol/L (137-145); Total Bilirubin 0.5 mg/dL (0.2-1.3); Total Protein 5.9 g/dL (6.3-8.2)
[2017-07-23 01:47] LABS: Potassium 2.6 mmol/L (3.5-5.1)
[2017-07-23] MEDS ORDERED: DOPamine DRIP 800 MG in DEXTROSE/WATER 1 500ML.BAG IV ONE (01:47)
[2017-07-23 01:48] LABS: ABG Base Excess -9.7 mmol/L; ABG HCO3 18 mmol/L (21-25); ABG PCO2 53 mmHg (35-45); ABG PH 7.15 (7.35-7.45); ABG PO2 90 mmHg (83-108); ABG TCO2 19 mmol/L (19-24)
[2017-07-23] MEDS ORDERED: ATROPINE SULFATE 0.1 MG/ML 10ML SYRINGE IV STA ×3 (01:49→05:20)
[2017-07-23 01:54] LABS: Glucose,Whole Blood 251 mg/dL (75-99)
[2017-07-23 01:56] LABS: Creatine Kinase MB 0.9 ng/mL (0.0-2.4)
[2017-07-23 01:57] LABS: Troponin I 0.065 ng/mL (0.000-0.034)
[2017-07-23 02:08] LABS: Add Differential Manual Differential
[2017-07-23 02:13] LABS: Band Neutrophils % 3 %; Metamyelocytes % 1 %; Nucleated Red Blood Cells 0 /100 WBC (0-0); Total Cells Counted 200
[2017-07-23 02:18] LABS: Polychromasia Present
[2017-07-23] MEDS: SODIUM BICARB 8.4% 50 ML SYR (1 MEQ/ML) IV ONE ×2 (02:40→05:22)
[2017-07-23] MEDS: POTASSIUM CHLORIDE 10 MEQ, LIDOCAINE 2% INJ 10 MG in SODIUM CHLORIDE 0.9% 100 ML IVPB SCH ×2 (02:48→03:54)
[2017-07-23 02:52] LABS: Amorphous Sediment,Urine Occasional /hpf; Appearance,Urine Turbid (Clear); Bacteria,Urine Occasional /hpf; Bilirubin,Urine Negative (Negative); Glucose,Urine (UA) Trace (Negative); Ketones,Urine Negative (Negative); Leukocyte Esterase,Urine Negative (Negative); Mucus,Urine Few /hpf; Nitrite,Urine Negative (Negative); Particle Count 46998; Protein,Urine 2+ (Negative); RBC,Urine 61 /hpf (0-5); Specific Gravity,Urine 1.021 (1.001-1.035); Sperm,Urine Moderate /hpf; Squamous Epithelial Cell,Urine 1 /hpf (0-4); UA Billing (MACRO vs. MICRO) MICRO; Urobilinogen,Urine <2.0 mg/dL (<2.0); WBC,Urine 9 /hpf (0-5)
--- NOTE | 2017-07-23 03:38 | CT ---
INDICATION: Unresponsive, history of CVA 2 months ago TECHNIQUE: CT acquisition is performed through the brain. Sagittal and coronal reformatted images are provided. No IV contrast is administered. DOSE INFORMATION: CTDIvol 60.30 mGy; DLP 1105.30 mGy-cm. One or more of the following dose reduction techniques were used: automated exposure control, adjustment of the mA and/or kV according to patient size, use of iterative reconstruction technique. COMPARISON: CT, CTA head 05/29/17. FINDINGS: Evolving left MCA territory infarct, now chronic, involving the lateral left frontal lobe and insula. [place]-white matter differentiation elsewhere in the brain is preserved. Cortical hyperdensity in the region of infarct may represent petechial hemorrhage; however, there is no evidence of hemorrhagic transformation. There is no midline shift. There is prominence of the sulci, ventricles, and basal cisterns owing to cortical and central cerebral and cerebellar volume loss. Patchy white matter hypoattenuation is in keeping with chronic small vessel ischemic disease. There is intracranial atherosclerosis. The visualized paranasal sinuses and mastoid air cells are clear. The calvarium is intact. IMPRESSION: 1. Evolving left MCA territory infarct, now chronic, involving the lateral left frontal lobe and insula. There is some cortical petechial hemorrhage in the area of infarct without hemorrhagic transformation. 2. No CT evidence of new territorial infarct. Consider MRI for further evaluation as clinically indicated.
[2017-07-23] MEDS ORDERED: LEVOFLOXACIN 750MG-D5W PMX 750 MG in DEXTROSE/WATER 1 150ML.BAG IVPB STA (03:46)
[2017-07-23] MEDS ORDERED: NALOXONE 0.4 MG/ML 1 ML VIAL IV PRN (03:59)
[2017-07-23] MEDS ORDERED: EPINEPHrine 1 MG/ML 1 ML AMP IV STA (04:12)
[2017-07-23 05:02] LABS: Glucose,Whole Blood 253 mg/dL (75-99)
[2017-07-23 05:40] LABS: ABG Base Excess 3.9 mmol/L; ABG HCO3 28 mmol/L (21-25); ABG PCO2 41 mmHg (35-45); ABG PH 7.44 (7.35-7.45); ABG PO2 72 mmHg (83-108); ABG TCO2 29 mmol/L (19-24)
[2017-07-23] MEDS ORDERED: POTASSIUM CHLORIDE 20 MEQ in WATER FOR INJECTION 1 100ML.BAG IVPB STA (05:52)
[2017-07-23] MEDS ORDERED: MORPHINE SULFATE (100 MG/2 ML) 100 MG in SODIUM CHLORIDE 0.9% 100 ML IV SCH (06:15)
[2017-07-23] MEDS ORDERED: MORPHINE SULFATE 4 MG/ML SYRINGE IV PRN (06:15)
[2017-07-23] MEDS ORDERED: LORazepam 2 MG/ML INJ IV PRN (06:15)
[2017-07-23] MEDS ORDERED: ONDANSETRON 4 MG/2 ML VIAL IVP PRN (06:15)
[2017-07-23] MEDS ORDERED: ATROPINE OPHTH SOLN 1% 5ML BTL SUBLINGUAL PRN (06:15)
[2017-07-23 06:25] VITALS: BMI 28.1
[2017-07-23 06:33] VITALS: BP 85/64; PULSE 0; RESP 0
--- NOTE | 2017-07-23 08:25 | CONS ---
CONSULTATION This is a 67-year-old gentleman who came into the emergency room and after arrival in the emergency room, he developed severe performed bradycardia, hypotension, and coded. The details are available in the ER record. Patient apparently was intubated and his lactate level was 10.8. His pH was 7.15. He had underlying atrial fibrillation with a slow rate. He was then placed on external pacer and I was called. After giving atropine, the heart rate went into the 50s and 60s, and the pacer was at a backup rate of 40. Patient was intubated, appeared to be in florid congestive heart failure. At this stage, he was moved to the ICU and after arrival in the ICU, his heart rate was again low and another atropine was given and pacer was set at a rate of 60. His blood pressure on dopamine 20 mcg came up to about 90 to 100 systolic. I came into see the patient in the morning at about 5:45 am. After arrival, patient was in atrial fibrillation with a wide QRS as the underlying rhythm at a rate of 40. The pacemaker was set at 60, his pressure was in the 96. He was unresponsive on a propofol drip on the ventilator. I examined the patient and noted that the recovery chance was very low. I did not have any history in the past. I spoke to the son, [id number] and and all 3 of them unanimously wished no further intervention and they want the patient to be kept comfortable and that was according to his desire. Apparently, on talking to them, he has what seems to be a nonischemic cardiomyopathy with ejection fraction of less than 25% and patient had a stroke as well and was discharged from a [facility] about a month ago. Apparently, he did not wish to have any invasive procedures and had also refused to have an ICD. The patient's and his son and [id number], all 3 of them insisted that no invasive aggressive measures be performed and therefore my initial intent of doing a temporary pacemaker was dropped and I advised that the patient be kept comfortable with the understanding that he would not survive this episode of recurrent ventricular fibrillation that he is having and also severe bradycardia as a result of poor myocardial contractility. Once the decision to keep him comfortable and not to do any invasive measures was made. Patient's family was comfortable and I have discontinued his backup external pacemaker and we will keep him on a morphine drip and keep him comfortable. PHYSICAL EXAMINATION: Blood pressure was 196/60. Initially when I saw him S1-S2 heard with paced beats. No other murmurs were audible. Neurologically, patient is unresponsive. Lungs revealed decent air entry with ventilator-assisted breaths. IMPRESSION: 1. Cardiac arrest in a patient with a nonischemic cardiomyopathy where further who had previously refused a defibrillator. 2. History of atrial fibrillation. 3. History of type 2 diabetes mellitus. RECOMMENDATIONS: At the request of patient's and son who have expressed and resonated patient's desire not to have any invasive procedures performed. We will defer any pacemaker plans and will keep him comfortable and will discontinue the external pacemaker at the desire of the family. Apparently, patient had refused a defibrillator as well in [place]. Patient very shortly will therefore and the family are quite comfortable with this. I had a discussion with patient's son and [id number] and also the patient's and they are all desirous of not doing any invasive procedures at this time, and they wish to keep him comfortable and then let him pass peacefully. MMSILVIAL / ANABELN: [id number] /
--- NOTE | 2017-07-23 22:25 | P.HPIM ---
History of Present Illness H&P Date: 07/23/17 Chief Complaint: Shortness of breath and vomiting Patient is a 67-year-old male with a known history of recent CVA with slight right-sided residual weakness, history of ID and ischemic cardio myopathy ejection fraction 25% refuses AICD placement and atrial fibrillation on Xarelto came to ER with the complaints of shortness of breath and vomiting 1 hour prior to admission. Patient came to ER via private vehicle. Upon arrival to the ER patient started vomiting blood. Patient was brought back to the room and was found to be in PEA. Patient became very pale and frothy pink phlegm was coming out of mouth. CPR was started immediately and he was intubated. Patient was found to be bradycardia and temporary pacemaker was placed.Patientwasalsogivenadoseofatropine.Patient was also started on dopamine drip. Blood pressure was sent in 90s while in ICU. Patient was sedated and intubated. Patient became bradycardic again and was having wide QRS complexes. Patient was seen by cardiology. Upon discussion with the family., Patient does not want any surgical intervention and even refuses to have AICD in May this year when he had CVA. Chest x-ray showed pulmonary edema. His lactic acidosis was 10.8 and patient pH was 7.1. Due to worsening clinical situation and unable to recover family has decided to go with comfort measures. Temporary pacemaker was removed and patient at 6:30 AM. I did discuss the family his and son and [id number] in detail. Review of Systems Complete review of systems could not be a peripheral the patient Past Medical History Past Medical History: CVA/TIA, Hypertension, Myocardial Infarction (ID) Additional Past Medical History / Comment(s): pt has abdominal herni,a CHF History of Any Multi-Drug Resistant Organisms: None Reported Past Surgical History: No Surgical Hx Reported Past Anesthesia/Blood Transfusion Reactions: No Reported Reaction Smoking Status: Former smoker - Past Family History Mother Family Medical History: Myocardial Infarction (ID) Father Family Medical History: Myocardial Infarction (ID) Medications and Allergies Home Medications Medication Instructions Recorded Confirmed Type metFORMIN HCL [Glucophage] 500 mg PO BID-W/MEALS #60 tab 12/29/15 07/23/17 Rx Amiodarone [Cordarone] 200 mg PO BID 07/23/17 07/23/17 History Atorvastatin Calcium [Lipitor] 80 mg PO HS 07/23/17 07/23/17 History Metoprolol Tartrate [Lopressor] 50 mg PO BID 07/23/17 07/23/17 History Rivaroxaban [Xarelto] 20 mg PO DAILY 07/23/17 07/23/17 History Sertraline HCl [Zoloft] 25 mg PO Q48H 07/23/17 07/23/17 History Allergies Allergy/AdvReac Type Severity Reaction Status Date / Time No Known Allergies Allergy Verified 07/23/17 00:47 Physical Exam Vitals: Vital Signs Temp Pulse Resp BP Pulse Ox 07/23/17 06:30 0 L 0 L 07/23/17 06:20 0 L 16 07/23/17 06:10 86 16 07/23/17 06:00 20 07/23/17 05:50 20 07/23/17 05:40 20 07/23/17 05:30 20 85/64 07/23/17 05:20 16 65/38 82 L 07/23/17 05:10 16 139/81 87 L 07/23/17 05:00 16 142/75 85 L 07/23/17 04:28 52 L 137/80 84 L 07/23/17 04:18 136/78 85 L 07/23/17 03:58 139/68 85 L 07/23/17 03:38 52 L 125/71 88 L 07/23/17 03:18 56 L 133/63 89 L 07/23/17 03:03 123/73 97 07/23/17 02:43 58 L 147/77 97 07/23/17 02:23 132/65 91 L 07/23/17 02:12 111/59 98 07/23/17 01:47 28 L 86/50 07/23/17 01:37 38 L 84/50 07/23/17 01:27 32 L 88/50 07/23/17 01:17 36 L 87/51 07/23/17 01:07 36 L 126/60 07/23/17 00:57 36 L 117/57 78 L 07/23/17 00:47 182/84 07/23/17 00:37 216/114 07/23/17 00:26 97.1 F L 46 L 16 182/84 Intake and Output 07/22/17 07/23/1717 22:59 06:59 14:59 Intake Total 13.119 Output Total 500 Balance -486.881 Intake: Intake, IV Titration 13.119 Amount DOPamine DRIP 800 mg In 5.244 Dextrose/Water 1 500ml. bag @ 5 MCG/KG/MIN 15.73 mls/hr IV .Q24H ONE Rx#: [id number] Propofol 1,000 mg In 100 7.875 ml @ Titrate IV .Q0M ONE Rx#:[id number] Output: Urine 500 Other: Weight 83.915 kg ABP, PAP, CO, CI - Last 8 Hours Arterial Blood Pressure 15 Arterial Blood Pressure Arterial Blood Pressure 172/76 Arterial Blood Pressure 166/69 Arterial Blood Pressure 164/81 Arterial Blood Pressure 109/89 Complete physical examination could not be done Results CBC & Chem 7: 07/23/17 01:10 07/23/17 01:10 Labs: Abnormal Lab Results - Last 24 Hours (Table) 07/23/17 07/23/17 07/23/17 Range/Units 01:10 01:10 01:10 WBC 18.4 H (3.8-10.6) k/uL MCHC 29.2 L (31.0-37.0) g/dL Neutrophils # (Manual) 10.10 H (1.3-7.7) k/uL Lymphocytes # (Manual) 6.44 H (1.0-4.8) k/uL Monocytes # (Manual) 1.66 H (0-1.0) k/uL Metamyelocytes # (Man) 0.18 H (0) k/uL PT 16.7 H (9.0-12.0) sec INR 1.7 H (<1.2) ABG pH (7.35-7.45) ABG pCO2 (35-45) mmHg ABG pO2 (83-108) mmHg ABG HCO3 (21-25) mmol/L ABG Total CO2 (19-24) mmol/L Potassium 2.6 L* (3.5-5.1) mmol/L Glucose 285 H (74-99) mg/dL POC Glucose (mg/dL) (75-99) mg/dL Plasma Lactic Acid Luis Alfredo (0.7-2.0) mmol/L AST 154 H (17-59) U/L ALT 136 H (21-72) U/L Troponin I (0.000-0.034) ng/mL Total Protein 5.9 L (6.3-8.2) g/dL Urine Protein (Negative) Urine Glucose (UA) (Negative) Urine Blood (Negative) Urine RBC (0-5) /hpf Urine WBC (0-5) /hpf Amorphous Sediment (None) /hpf Urine Bacteria (None) /hpf Hyaline Casts (0-2) /lpf Urine Mucus (None) /hpf Urine Sperm (None) /hpf 07/23/17 07/23/17 07/23/17 Range/Units 01:10 01:10 01:15 WBC (3.8-10.6) k/uL MCHC (31.0-37.0) g/dL Neutrophils # (Manual) (1.3-7.7) k/uL Lymphocytes # (Manual) (1.0-4.8) k/uL Monocytes # (Manual) (0-1.0) k/uL Metamyelocytes # (Man) (0) k/uL PT (9.0-12.0) sec INR (<1.2) ABG pH 7.15 L* (7.35-7.45) ABG pCO2 53 H (35-45) mmHg ABG pO2 (83-108) mmHg ABG HCO3 18 L (21-25) mmol/L ABG Total CO2 (19-24) mmol/L Potassium (3.5-5.1) mmol/L Glucose (74-99) mg/dL POC Glucose (mg/dL) (75-99) mg/dL Plasma Lactic Acid Luis Alfredo 10.8 H* (0.7-2.0) mmol/L AST (17-59) U/L ALT (21-72) U/L Troponin I 0.065 H* (0.000-0.034) ng/mL Total Protein (6.3-8.2) g/dL Urine Protein (Negative) Urine Glucose (UA) (Negative) Urine Blood (Negative) Urine RBC (0-5) /hpf Urine WBC (0-5) /hpf Amorphous Sediment (None) /hpf Urine Bacteria (None) /hpf Hyaline Casts (0-2) /lpf Urine Mucus (None) /hpf Urine Sperm (None) /hpf 07/23/17 07/23/17 07/23/17 Range/Units 01:50 02:14 05:00 WBC (3.8-10.6) k/uL MCHC (31.0-37.0) g/dL Neutrophils # (Manual) (1.3-7.7) k/uL Lymphocytes # (Manual) (1.0-4.8) k/uL Monocytes # (Manual) (0-1.0) k/uL Metamyelocytes # (Man) (0) k/uL PT (9.0-12.0) sec INR (<1.2) ABG pH (7.35-7.45) ABG pCO2 (35-45) mmHg ABG pO2 (83-108) mmHg ABG HCO3 (21-25) mmol/L ABG Total CO2 (19-24) mmol/L Potassium (3.5-5.1) mmol/L Glucose (74-99) mg/dL POC Glucose (mg/dL) 251 H 253 H (75-99) mg/dL Plasma Lactic Acid Luis Alfredo (0.7-2.0) mmol/L AST (17-59) U/L ALT (21-72) U/L Troponin I (0.000-0.034) ng/mL Total Protein (6.3-8.2) g/dL Urine Protein 2+ H (Negative) Urine Glucose (UA) Trace H (Negative) Urine Blood Moderate H (Negative) Urine RBC 61 H (0-5) /hpf Urine WBC 9 H (0-5) /hpf Amorphous Sediment Occasional H (None) /hpf Urine Bacteria Occasional H (None) /hpf Hyaline Casts 12 H (0-2) /lpf Urine Mucus Few H (None) /hpf Urine Sperm Moderate H (None) /hpf 07/23/17 07/23/17 Range/Units 05:34 05:55 WBC (3.8-10.6) k/uL MCHC (31.0-37.0) g/dL Neutrophils # (Manual) (1.3-7.7) k/uL Lymphocytes # (Manual) (1.0-4.8) k/uL Monocytes # (Manual) (0-1.0) k/uL Metamyelocytes # (Man) (0) k/uL PT (9.0-12.0) sec INR (<1.2) ABG pH (7.35-7.45) ABG pCO2 (35-45) mmHg ABG pO2 72 L (83-108) mmHg ABG HCO3 28 H (21-25) mmol/L ABG Total CO2 29 H (19-24) mmol/L Potassium (3.5-5.1) mmol/L Glucose (74-99) mg/dL POC Glucose (mg/dL) (75-99) mg/dL Plasma Lactic Acid Luis Alfredo 4.1 H* (0.7-2.0) mmol/L AST (17-59) U/L ALT (21-72) U/L Troponin I (0.000-0.034) ng/mL Total Protein (6.3-8.2) g/dL Urine Protein (Negative) Urine Glucose (UA) (Negative) Urine Blood (Negative) Urine RBC (0-5) /hpf Urine WBC (0-5) /hpf Amorphous Sediment (None) /hpf Urine Bacteria (None) /hpf Hyaline Casts (0-2) /lpf Urine Mucus (None) /hpf Urine Sperm (None) /hpf Assessment and Plan Assessment: acute cardio pulmonary arrest due to CEA Bradycardia, Acute Pulmonary edema severe Lactic acidosis, severe Hypokalemia Atrial fibrillation was on Xarelto History of recent CVA with right-sided residual weakness minimal Ischemic cardiomyopathy ejection fraction 25%. Refuses AICD placement Acute on chronic CHF with systolic dysfunction Hypertension Troponin elevation Plan: Patient was admitted to the hospital his complaints of shortness of breath and vomiting. Upon arrival to ER patient started vomiting blood and went into cardiac arrest with CEA. Patient was resuscitated and intubated and sedated and was placed on temporary pacemaker due to bradycardia. Patient clinical condition worsened with it fibrillation and wide QRS and ventricular fibrillation. Due to lack lack of chance of recovery and patient did not wish any invasive procedures, family has decided to go with comfort measures and patient was taken off from the temporary pacemaker. Time with Patient: Greater than 30
--- NOTE | 2017-07-23 22:27 | P.DS ---
Providers Date of admission: 07/23/17 04:03 Expected date of discharge: 07/23/17 Attending physician: Tita Hoang Consults: 07/23/17 03:59 Consult Physician Urgent Consulting Provider: [facility] Consult Reason/Comments: Pulmonary edema, bradycardia Do you want consulting provider notified?: Already Contacted Consult Physician Urgent Consulting Provider: Erick Castrejon Reason/Comments: Critical care management Do you want consulting provider notified?: Already Contacted Primary care physician: Sondra Perdomo Hospital Course: Discharge diagnosis acute cardio pulmonary arrest due to CEA Bradycardia requiring temporary pacemaker Acute Pulmonary edema severe Lactic acidosis, severe Hypokalemia Atrial fibrillation History of recent CVA with right-sided residual weakness minimal Ischemic cardiomyopathy ejection fraction 25%. Refuses AICD placement Acute on chronic CHF with systolic dysfunction Hypertension Troponin elevation Hospital course Patient is a 67-year-old male with a known history of recent CVA with slight right-sided residual weakness, history of LA and ischemic cardio myopathy ejection fraction 25% refuses AICD placement and atrial fibrillation on Xarelto came to ER with the complaints of shortness of breath and vomiting 1 hour prior to admission. Patient came to ER via private vehicle. Upon arrival to the ER patient started vomiting blood. Patient was brought back to the room and was found to be in PEA. Patient became very pale and frothy pink phlegm was coming out of mouth. CPR was started immediately and he was intubated. Patient was found to be bradycardia and temporary pacemaker was placed.Patientwasalsogivenadoseofatropine.Patient was also started on dopamine drip. Blood pressure was sent in 90s while in ICU. Patient was sedated and intubated. Patient became bradycardic again and was having wide QRS complexes. Patient was seen by cardiology. Upon discussion with the family., Patient does not want any surgical intervention and even refuses to have AICD in May this year when he had CVA. Chest x-ray showed pulmonary edema. His lactic acidosis was 10.8 and patient pH was 7.1. Due to worsening clinical situation and unable to recover family has decided to go with comfort measures. Temporary pacemaker was removed and patient at 6:30 AM. I did discuss the family his and son and [id number] in detail. Patient Condition at Discharge: Undetermined Plan - Discharge Summary New Discharge Prescriptions: No Action metFORMIN HCL [Glucophage] 500 mg PO BID-W/MEALS #60 tab Sertraline HCl [Zoloft] 25 mg PO Q48H Rivaroxaban [Xarelto] 20 mg PO DAILY Amiodarone [Cordarone] 200 mg PO BID Metoprolol Tartrate [Lopressor] 50 mg PO BID Atorvastatin Calcium [Lipitor] 80 mg PO HS Discharge Medication List metFORMIN HCL [Glucophage] 500 mg PO BID-W/MEALS #60 tab 12/29/15 [Rx] Amiodarone [Cordarone] 200 mg PO BID 07/23/17 [History] Atorvastatin Calcium [Lipitor] 80 mg PO HS 07/23/17 [History] Metoprolol Tartrate [Lopressor] 50 mg PO BID 07/23/17 [History] Rivaroxaban [Xarelto] 20 mg PO DAILY 07/23/17 [History] Sertraline HCl [Zoloft] 25 mg PO Q48H 07/23/17 [History] Follow up Appointment(s)/Referral(s): Sondra Perdomo III, MD [Primary Care Provider] - 1-2 days Discharge Disposition: - Preliminary Cause of Preliminary Cause of : acute cardio pulmonary arrest due to CEA
== END 2017-07-23 13:20 | disposition expired | DRG 292 ==
LOC: EC 00:25 → 6ICU 04:03
PROVIDERS: ADMIT Internal Medicine; ATTEND Internal Medicine
PROC: 5A1935Z Respiratory Ventilation, Less than 24 Consecutive Hours (ICD-10-PCS; principal; 2017-07-23)
PROC: 5A1223Z Performance of Cardiac Pacing, Continuous (ICD-10-PCS; 2017-07-23)
PROC: 0BH17EZ Insertion of Endotracheal Airway into Trachea, Via Natural or Artificial Opening (ICD-10-PCS; 2017-07-23)
PROC: 06HM33Z Insertion of Infusion Device into Right Femoral Vein, Percutaneous Approach (ICD-10-PCS; 2017-07-23)
DX: I11.0 Hypertensive heart disease with heart failure (principal); E87.2 Acidosis; K92.0 Hematemesis; I69.951 Hemiplegia and hemiparesis following unspecified cerebrovascular disease affecting right dominant side; I95.9 Hypotension, unspecified; I48.91 Unspecified atrial fibrillation; R00.1 Bradycardia, unspecified; E11.9 Type 2 diabetes mellitus without complications; I50.23 Acute on chronic systolic (congestive) heart failure; Z51.5 Encounter for palliative care; E87.6 Hypokalemia; I25.2 Old myocardial infarction; I25.5 Ischemic cardiomyopathy; I46.9 Cardiac arrest, cause unspecified; I49.01 Ventricular fibrillation; K46.9 Unspecified abdominal hernia without obstruction or gangrene; R74.8 Abnormal levels of other serum enzymes; Z79.01 Long term (current) use of anticoagulants; Z79.82 Long term (current) use of aspirin; Z79.84 Long term (current) use of oral hypoglycemic drugs; Z79.899 Other long term (current) drug therapy; Z87.891 Personal history of nicotine dependence; Z82.49 Family history of ischemic heart disease and other diseases of the circulatory system
CPT/HCPCS: 31500; 36415; 36556; 36600; 51702; 70450; 71010; 80053; 81001; 82550; 82553; 82805; 83605; 83735; 83880; 84484; 85025; 85610; 85730; 86850; 86900; 86901; 87040; 92950; 93005; 94002; 96361; 96365; 96366; 96368; 96375; 99291